=== PATIENT | male | born 1975 | race Caucasian/White ===

== ENCOUNTER 2021-11-26 02:32 | Inpatient (IN) | payer OTHER ==
[~2021-11-26] VITALS: Ht 165.1 cm; Wt 65.8 kg
== END 2021-11-29 17:33 | disposition home or self-care (01) | DRG 282 ==
LOC: ER 02:32 → MEDJ 16:16 → MEDI 16:16
PROVIDERS: ADMIT Internal Medicine; ATTEND Internal Medicine
PROC: B030ZZZ Magnetic Resonance Imaging (MRI) of Brain (ICD-10-PCS; principal; 2021-11-26)
PROC: B24BZZZ Ultrasonography of Heart with Aorta (ICD-10-PCS; 2021-11-27)
PROC: 4A12X4Z Monitoring of Cardiac Electrical Activity, External Approach (ICD-10-PCS; 2021-11-27)
PROC: C21G1ZZ Planar Nuclear Medicine Imaging of Myocardium using Technetium 99m (Tc-99m) (ICD-10-PCS; 2021-11-28)
DX: I21.4 Non-ST elevation (NSTEMI) myocardial infarction (principal); R55 Syncope and collapse; R07.2 Precordial pain; I20.8 Other forms of angina pectoris; K59.09 Other constipation; Z20.822 Contact with and (suspected) exposure to COVID-19; I10 Essential (primary) hypertension
CPT/HCPCS: 70551

== ENCOUNTER 2024-05-30 08:21 | Emergency (ER) | payer OTHER ==
[~2024-05-30] VITALS: Ht 165.1 cm; Wt 63.5 kg
[2024-05-30 09:56] LABS: HEMATOCRIT 40.8 % (39.0-48.0); HEMOGLOBIN 14.1 g/dL (13-16.00); MEAN CELL VOLUME 89.3 fL (80.0-100.00); MEAN CORPUSCULAR HEMOGLOBIN 30.9 pg (27.00-32.0); MEAN CORPUSCULAR HGB CONC 34.6 g/dl (32.0-36.0); PLATELET COUNT 199 K/uL (150-450); RED BLOOD COUNT 4.57 M/uL (4.00-6.00); RED CELL DISTRIBUTION WIDTH 12.4 % (11.5-14.5)
[2024-05-30 10:12] LABS: URINE APPEARANCE Clear; URINE BILIRRUBIN Negative (NEGATIVE); URINE BLOOD Negative; URINE COLOR Dark Yellow; URINE GLUCOSE Negative (NEGATIVE); URINE KETONE Trace (NEGATIVE); URINE LEUKOCYTE Negative; URINE NITRATE Negative; URINE PROTEIN Trace (NEGATIVE)
[2024-05-30 10:14] LABS: URINE EPITHELIAL CELLS 1.5 uL (0.0-38.8); URINE RBC 33.5 uL (0.0-20.8); URINE WBC 2.8 uL (0.0-23.2)
[2024-05-30 10:20] LABS: URINE BACTERIA 2.4 uL (0.0-1933)
[2024-05-30 11:08] LABS: ALBUMIN 3.4 gm/dL (3.4-5.0); BILIRUBIN TOTAL 0.49 mg/dL (0.3-1.2); CALCIUM 8.8 mg/dL (8.5-10.1); CREATININE SERUM 1.01 mg/dL (0.70-1.30); GFR 79.18; GLOBULINA 3.6 G/DL (2.4-3.5); POTASSIUM 3.77 mEq/L (3.5-5.1)
[2024-05-30 12:45] LABS: COCAINE NEGATIVE (NEGATIVE); METHADONE NEGATIVE (NEGATIVE); OPIATES NEGATIVE (NEGATIVE); THC ( Cannabinoids) NEGATIVE (NEGATIVE)
== END 2024-05-30 13:30 | disposition home or self-care (01) ==
LOC: ER 08:23
PROVIDERS: General Practice
DX: R55 Syncope and collapse (principal); Z20.822 Contact with and (suspected) exposure to COVID-19

== ENCOUNTER 2024-09-29 11:26 | Emergency (ER) | payer OTHER ==
[~2024-09-29] VITALS: Ht 165.1 cm; Wt 63.5 kg
[2024-09-29] MEDS ORDERED: KETO10TA2 PO (14:49)
[2024-09-29] MEDS ORDERED: NORFLEX100MG PO (14:49)
[2024-09-29] MEDS ORDERED: KETOROLAC TROMETHAMINE 60 MG VIAL IM ONE ×2 (15:00→15:06)
== END 2024-09-29 15:38 | disposition home or self-care (01) ==
LOC: ER 11:26
DX: M62.838 Other muscle spasm (principal)